=== PATIENT | female | born 1980 | race Caucasian/White ===

== ENCOUNTER 2021-09-25 14:47 | Emergency (ER) | payer OTHER ==
[~2021-09-25] VITALS: Ht 167.6 cm; Wt 89.8 kg
[2021-09-25] MEDS ORDERED: PEPCID20 MG PO (18:02)
[2021-09-25] MEDS ORDERED: BENADRYL25 MG PO (18:02)
[2021-09-25] MEDS ORDERED: ACETAMINOPHEN650 M2 PO (18:02)
[2021-09-25] MEDS ORDERED: [UNRECOGNIZED DRUG - OTHER] TOP (18:02)
== END 2021-09-25 18:07 | disposition home or self-care (01) ==
LOC: ER 14:47
DX: S50.861A Insect bite (nonvenomous) of right forearm, initial encounter (principal); W57.XXXA Bitten or stung by nonvenomous insect and other nonvenomous arthropods, initial encounter; Z03.818 Encounter for observation for suspected exposure to other biological agents ruled out